=== PATIENT | female | born 1960 | race Caucasian/White ===

== ENCOUNTER → 2017-05-02 | Outpatient (CLI) | payer OTHER ==
[~2017-05-02] MED LIST: DIPH50TA PO; LEVO125T3 PO; LORA-474 PO; OXCA150 PO; PRIM50TA PO; REST30CA PO; RISP3TAB23 PO
--- NOTE | 2017-05-02 11:50 | RADRPT ---
EXAM DATE/TIME: 05/02/2017 00:00 [place] COMPARISON: No previous studies available for comparison. INDICATIONS : Dysphagia. Patient states she had aspirated and then developed pneumonia. FLUORO TIME: 1.5 minutes IMAGE COUNT: 0 CONTRAST: Dose as prescribed by speech pathologist. MEDICAL HISTORY : None. SURGICAL HISTORY : None. ENCOUNTER: Initial ACUITY: 1 month PAIN SCORE: 0/10 LOCATION: Bilateral Esophagus. FINDINGS: A modified barium swallow was performed with speech pathology. Patient was given a variety of liquids to swallow. Minimal vestibular penetration was demonstrated during rapid swallowing through a straw. Swallowing mechanism is otherwise intact without evidence of aspiration. For a full detailed report, see report by the speech pathologist. CONCLUSION: Essentially normal swallowing mechanism. Mello Montemayor MD on May 02, 2017 at 11:47 Board Certified Radiologist. This report was verified electronically.
== END ==
LOC: HRAD 09:41
PROVIDERS: ATTEND Internal Medicine Gastroenterology
DX: K21.9 Gastro-esophageal reflux disease without esophagitis (principal)
CPT/HCPCS: 74230; 92611; G8996; G8997; G8998